=== PATIENT | male | born 1955 | race Caucasian/White ===

== ENCOUNTER 2020-12-24 02:24 | Emergency (ER) | payer MEDICARE ==
[2020-12-24 02:44] LABS: HEMOGLOBIN 15.1 gm/dl (14.0-17.5); RED BLOOD COUNT 5.25 M/UL (4.20-5.50); WHITE BLOOD COUNT 6.6 K/UL (4.5-11.0)
[2020-12-24] MEDS ORDERED: HYDROCODON-ACE1 EAC4 PO (04:52)
[2020-12-24] MEDS ORDERED: ZOFRAN ODT 4 MG4 MG PO (04:52)
[2020-12-24] MEDS ORDERED: FLOMAX 0.4 MG0.4 MG PO (04:52)
== END 2020-12-24 05:01 | disposition home or self-care (01) ==
LOC: ER1 02:24
PROVIDERS: Family Medicine
DX: N13.2 Hydronephrosis with renal and ureteral calculous obstruction (principal); N28.9 Disorder of kidney and ureter, unspecified; I10 Essential (primary) hypertension; Z79.899 Other long term (current) drug therapy
CPT/HCPCS: 80053; 81001; 83690; 85025; 96374; 96375; 99284; J1885; J2270; J2405